=== PATIENT | male | born 1985 | race American Indian/Alaskan Native ===

== ENCOUNTER 2016-09-10 14:17 | Emergency (ER) | payer SELFPAY ==
[2016-09-10] MEDS ORDERED: ZOFRAN ODT PO ONE (16:50)
[2016-09-10] MEDS ORDERED: NACL 0.9% 1000 ML 1,000 ML IV ONE (16:52)
[2016-09-10] MEDS ORDERED: ZOFRAN IV ONE (16:53)
[2016-09-10 17:07] LABS: Basophils % (Auto) 0.7 % (0.0-1.8); Eosinophils % (Auto) 0.4 % (0.0-4.3); Hematocrit 46.7 % (35.5-45.6); Hemoglobin 15.3 gm/dl (11.8-15.2); Mean Corpuscular HGB Conc 33 % (32-34); Mean Corpuscular Hemoglobin 30 pg (28-32); Mean Corpuscular Volume 91 fl (84-94); Platelet Count 193 K/mm3 (140-440); Red Blood Count 5.14 M/mm3 (3.65-5.03); Red Cell Distribution Width 14.2 % (13.2-15.2)
--- NOTE | 2016-09-10 17:57 | Emergency Department Report ---
- General Chief Complaint: Upper Respiratory Infection Stated Complaint: N/V/D Time Seen by Provider: 09/10/16 16:48 Source: patient Mode of arrival: Ambulatory Limitations: No Limitations - History of Present Illness Initial Comments: Patient presents today with nausea, vomiting x 7 today, diarrhea x4 today and body aches. He states the diarrhea has been x 2 days. He has also had chills and sweating. MD Complaint: fever, cough -: Gradual Severity: severe Severity scale (0 -10): 9 Quality: aching Consistency: constant Improves With: nothing Worsens With: nothing Associated Symptoms: fever, chills, myalgias, cough, nausea, vomiting, diarrhea - Related Data Previous Rx's Medication Instructions Recorded Last Taken Type Ondansetron [Zofran Odt] 4 mg PO Q4H PRN #10 tab.rapdis 05/31/15 Unknown Rx Ondansetron [Zofran Odt] 4 mg PO BID #10 tab.rapdis 09/10/16 Unknown Rx Allergies Allergy/AdvReac Type Severity Reaction Status Date / Time No Known Allergies Allergy Unverified 04/19/14 10:08 ED Review of Systems ROS: Stated complaint: N/V/D Other details as noted in HPI Constitutional: denies: chills, fever Eyes: denies: eye pain, eye discharge, vision change ENT: denies: ear pain, throat pain Respiratory: denies: cough, shortness of breath, wheezing Cardiovascular: denies: chest pain, palpitations Gastrointestinal: nausea, diarrhea. denies: abdominal pain Genitourinary: denies: urgency, dysuria Musculoskeletal: as per HPI Skin: denies: rash, lesions Neurological: denies: headache, weakness, paresthesias ED Past Medical Hx - Surgical History Additional Surgical History: Surgery right ear, PE tubes - Social History Smoking Status: Current Every Day Smoker Substance Use Type: None - Medications Home Medications: Home Medications Medication Instructions Recorded Confirmed Last Taken Type Ondansetron [Zofran Odt] 4 mg PO Q4H PRN #10 tab.rapdis 05/31/15 Unknown Rx Ondansetron [Zofran Odt] 4 mg PO BID #10 tab.rapdis 09/10/16 Unknown Rx ED Physical Exam - General Limitations: No Limitations General appearance: alert, in no apparent distress, other (ill appearance, but non toxic) - Head Head exam: Present: atraumatic, normocephalic - Eye Eye exam: Present: normal appearance, PERRL - ENT ENT exam: Present: mucous membranes moist - Expanded ENT Exam Expanded TM/Canal exam: Effusion: Right TM, Left TM, Loss of Landmarks: Right TM, Left TM Mouth exam: Present: normal external inspection Teeth exam: Present: normal inspection Throat exam: Positive: normal inspection - Neck Neck exam: Present: normal inspection, full ROM. Absent: lymphadenopathy - Respiratory Respiratory exam: Present: normal lung sounds bilaterally. Absent: respiratory distress, wheezes, rales, rhonchi - Cardiovascular Cardiovascular Exam: Present: regular rate, normal rhythm. Absent: systolic murmur, diastolic murmur, rubs, gallop - GI/Abdominal GI/Abdominal exam: Present: soft, normal bowel sounds - Extremities Exam Extremities exam: Present: normal inspection, full ROM - Back Exam Back exam: Present: normal inspection, full ROM. Absent: tenderness - Neurological Exam Neurological exam: Present: alert, oriented X3, CN II-XII intact, normal gait - Psychiatric Psychiatric exam: Present: normal affect, normal mood - Skin Skin exam: Present: warm, dry, intact, normal color. Absent: rash ED Course Vital Signs 09/10/16 14:57 Temperature 99.1 F Pulse Rate 105 H Respiratory 18 Rate Blood Pressure 126/85 O2 Sat by Pulse 99 Oximetry ED Medical Decision Making - Lab Data Result diagrams: 09/10/16 16:53 09/10/16 16:53 - Medical Decision Making Patient presents today with flulike symptoms. He was given a liter of IV fluids , and Zofran 4 mg IV. After being given both he states he feels much better. He does not have a white count. His urine has some ketones and elevated specific gravity, H&H is slightly elevated. He likely has some dehydration due to the vomiting and diarrhea. He states he does not have time to wait for flu testing. Flu swabs cannot be located at this time. - Differential Diagnosis gastroenteritis, flu Critical Care Time: No Critical care attestation.: If time is entered above; I have spent that time in minutes in the direct care of this critically ill patient, excluding procedure time. ED Disposition Clinical Impression: Gastroenteritis Disposition: DISCHARGED TO HOME OR SELFCARE Is pt being admited?: No Does the pt Need Aspirin: No Condition: Stable Instructions: Acute Nausea and Vomiting (ED), Gastroenteritis (ED) Additional Instructions: Please return to ED if her symptoms do not resolve with medication. It is advised that she increase her fluid intake to avoid dehydration. It is also advised that he the BRAT diet which is banana, rice, applesauce, toast. Prescriptions: Ondansetron [Zofran Odt] 4 mg PO BID #10 tab.rapdis Referrals: PRIMARY CARE, [Primary Care Provider] - 3-5 Days Forms: Work/School Release Form(ED) Time of Disposition: 19:32
[2016-09-10 18:01] LABS: Alanine Aminotransferase 19 units/L (7-56); Albumin/Globulin Ratio 1.2 %; Alkaline Phosphatase 85 units/L (35-129); Anion Gap 17 mmol/L; BUN/Creatinine Ratio 7.77; Bilirubin,Total 0.2 mg/dL (0.1-1.2); Blood Urea Nitrogen 7 mg/dL (9-20); Calcium 9.4 mg/dL (8.4-10.2); Carbon Dioxide 24 mmol/L (22-30); Chloride 98.9 mmol/L (98-107); Glucose 92 mg/dL (75-100); Potassium 3.7 mmol/L (3.6-5.0); Sodium 136 mmol/L (137-145); Total Protein 7.4 g/dL (6.3-8.2)
[2016-09-10 19:19] LABS: Bilirubin,Urine NEG (Negative); Blood,Urine NEG (Negative); Ketones,Urine 20 mg/dL (Negative); Leukocyte Esterase,Urine NEG (Negative); Mucus,Urine 3+ /HPF; Nitrite,Urine NEG (Negative); Protein,Urine <15 mg/dL mg/dL (Negative); Urobilinogen,Urine < 2.0 mg/dL (<2.0)
[2016-09-10 19:58] VITALS: BP 127/76
== END 2016-09-10 19:59 | disposition home or self-care (01) ==
LOC: ED 14:17
DX: K52.9 Noninfective gastroenteritis and colitis, unspecified (principal); F17.200 Nicotine dependence, unspecified, uncomplicated
CPT/HCPCS: 36415; 80053; 81001; 85025; 96361; 96374; 99283; J2405; J7030

== ENCOUNTER 2017-02-22 07:51 | Emergency (ER) | payer SELFPAY ==
[2017-02-22 08:05] VITALS: BP 128/76
[2017-02-22] MEDS ORDERED: TORADOL IM ONE (09:36)
[2017-02-22] MEDS ORDERED: ULTRAM PO ONE (09:36)
--- NOTE | 2017-02-22 10:12 | Emergency Department Report ---
ED ENT HPI - General Chief complaint: Dental/Oral Stated complaint: TOOTHACHE Source: patient Mode of arrival: Ambulatory Limitations: No Limitations - History of Present Illness Initial comments: 31 year old male presents to ED with toothache x2 days. patient is stable, neurologically intact and in no acute distress. patient denies discharge, diff swallowing, mass. MD complaint: tooth pain -: Sudden 1 - toothace Severity: mild Quality: aching, sharp Consistency: constant Worsens with: eating Context- Dental: history of dental caries, poor dental care Associated Symptoms: gum swelling (mild), toothache. denies: fever, cough, pain with swallowing, sore throat, tinnitus, hearing loss, discharge from ear, rhinorrhea - Related Data Previous Rx's Medication Instructions Recorded Last Taken Type Ondansetron [Zofran Odt] 4 mg PO Q4H PRN #10 tab.rapdis 05/31/15 Unknown Rx Ondansetron [Zofran Odt] 4 mg PO BID #10 tab.rapdis 09/10/16 Unknown Rx Amoxicillin 500 mg PO BID #14 capsule 02/22/17 Unknown Rx Naproxen [Naprosyn] 500 mg PO BID #14 tablet 02/22/17 Unknown Rx Allergies Allergy/AdvReac Type Severity Reaction Status Date / Time No Known Allergies Allergy Unverified 04/19/14 10:08 ED Dental HPI - General Chief complaint: Dental/Oral Stated complaint: TOOTHACHE Source: patient Mode of arrival: Ambulatory Limitations: No Limitations - Related Data Previous Rx's Medication Instructions Recorded Last Taken Type Ondansetron [Zofran Odt] 4 mg PO Q4H PRN #10 tab.rapdis 05/31/15 Unknown Rx Ondansetron [Zofran Odt] 4 mg PO BID #10 tab.rapdis 09/10/16 Unknown Rx Amoxicillin 500 mg PO BID #14 capsule 02/22/17 Unknown Rx Naproxen [Naprosyn] 500 mg PO BID #14 tablet 02/22/17 Unknown Rx Allergies Allergy/AdvReac Type Severity Reaction Status Date / Time No Known Allergies Allergy Unverified 04/19/14 10:08 ED Review of Systems ROS: Stated complaint: TOOTHACHE Other details as noted in HPI Constitutional: denies: chills, fever Eyes: denies: eye pain, eye discharge, vision change ENT: dental pain (upper right). denies: ear pain, throat pain, hearing loss, epistaxis, congestion Respiratory: denies: cough, shortness of breath, wheezing Cardiovascular: denies: chest pain, palpitations Endocrine: no symptoms reported Gastrointestinal: denies: abdominal pain, nausea, diarrhea Genitourinary: denies: urgency, dysuria Musculoskeletal: denies: back pain, joint swelling, arthralgia Skin: denies: rash, lesions Neurological: denies: headache, weakness, paresthesias Psychiatric: denies: anxiety, depression Hematological/Lymphatic: denies: easy bleeding, easy bruising ED Past Medical Hx - Past Medical History Previous Medical History?: Yes Additional medical history: sinusitis - Surgical History Past Surgical History?: Yes Additional Surgical History: Surgery right ear, PE tubes - Social History Smoking Status: Current Every Day Smoker Substance Use Type: Non Opiate Pain - Medications Home Medications: Home Medications Medication Instructions Recorded Confirmed Last Taken Type Ondansetron [Zofran Odt] 4 mg PO Q4H PRN #10 tab.rapdis 05/31/15 Unknown Rx Ondansetron [Zofran Odt] 4 mg PO BID #10 tab.rapdis 09/10/16 Unknown Rx Amoxicillin 500 mg PO BID #14 capsule 02/22/17 Unknown Rx Naproxen [Naprosyn] 500 mg PO BID #14 tablet 02/22/17 Unknown Rx ED Physical Exam - General Limitations: No Limitations General appearance: alert, in no apparent distress - Head Head exam: Present: atraumatic, normocephalic - Eye Eye exam: Present: normal appearance, EOMI Pupils: Present: normal accommodation - ENT ENT exam: Present: normal exam, mucous membranes moist, TM's normal bilaterally , normal external ear exam - Neck Neck exam: Present: normal inspection. Absent: tenderness, lymphadenopathy - Respiratory Respiratory exam: Present: normal lung sounds bilaterally. Absent: respiratory distress, wheezes - Cardiovascular Cardiovascular Exam: Present: regular rate, normal rhythm. Absent: systolic murmur, diastolic murmur, rubs, gallop - GI/Abdominal GI/Abdominal exam: Present: soft, normal bowel sounds. Absent: distended, tenderness - Rectal Rectal exam: Present: deferred - Extremities Exam Extremities exam: Present: normal inspection, full ROM - Back Exam Back exam: Present: normal inspection, full ROM - Neurological Exam Neurological exam: Present: alert, oriented X3, normal gait - Psychiatric Psychiatric exam: Present: normal affect, normal mood - Skin Skin exam: Present: warm, dry, intact, normal color. Absent: rash ED Course Vital Signs 02/22/17 02/22/17 08:02 09:45 Temperature 98.8 F Pulse Rate 75 Respiratory 20 20 Rate Blood Pressure 128/76 O2 Sat by Pulse 100 Oximetry ED Medical Decision Making - Medical Decision Making 31 year old male presents to ED with toothache x2 days. patient has dental caries present in right upper mouth with mild gum swelling. patient will be placed on PO antibiotics and referred to [facility] dental clinic for further eval. patient is stable, neurologically intact and in no acute distress. Critical care attestation.: If time is entered above; I have spent that time in minutes in the direct care of this critically ill patient, excluding procedure time. ED Disposition Clinical Impression: Toothache, Dental caries, Gingivitis Disposition: DC- TO HOME OR SELFCARE Is pt being admited?: No Does the pt Need Aspirin: No Condition: Stable Instructions: Dental Caries (ED), Toothache (ED) Prescriptions: Amoxicillin 500 mg PO BID #14 capsule Naproxen [Naprosyn] 500 mg PO BID #14 tablet Referrals: [facility] [Outside] - 3-5 Days Forms: Work/School Release Form(ED)
== END 2017-02-22 10:01 | disposition home or self-care (01) ==
LOC: ED 07:51
DX: K02.9 Dental caries, unspecified (principal); K05.10 Chronic gingivitis, plaque induced; F17.200 Nicotine dependence, unspecified, uncomplicated
CPT/HCPCS: 96372; 99282; J1885

== ENCOUNTER 2017-08-06 10:56 | Emergency (ER) | payer SELFPAY ==
--- NOTE | 2017-08-06 17:54 | Emergency Department Report ---
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 PMHx: Right ear surgery as a child (tube placement), right hand Fx in the past. smokes about a 1/4 pack a day, He doesn't drink ETOH, No THC or illicit drugs. - ROS Review of Systems: As stated in HPI - Exam Vital Signs: Vital Signs 08/06/17 11:48 Temperature 98.7 F Pulse Rate 81 Respiratory 16 Rate Blood Pressure 137/68 O2 Sat by Pulse 98 Oximetry Physical Exam: mild distress NCAT CTA RRR tenderness to the right upper posterior molar, obvious cavity present, some redness to the overlying gum, no obvious visible abscess, some slight swelling to the gum line in the area. MSE screening note: Focused history and physical exam performed. Due to findings the following was ordered: Will go ahead and give a shot of Toradol, Rx for amoxicillin, and ibuprofen 800mg TID, advised OTC oragel and follow up with dentist. ED Disposition for MSE Condition: Stable Referrals: PRIMARY CARE, [Primary Care Provider] - 3-5 Days
[2017-08-06] MEDS ORDERED: TORADOL IM ONE (17:58)
[2017-08-06] MEDS ORDERED: TRIMOX PO ONE (17:59)
[2017-08-06] MEDS ORDERED: TORADOL ONE (18:15)
[2017-08-06 18:56] VITALS: BP 128/67
== END 2017-08-06 18:57 | disposition home or self-care (01) ==
LOC: ED 10:56
DX: K08.89 Other specified disorders of teeth and supporting structures (principal)
CPT/HCPCS: 96372; 99282; J1885

== ENCOUNTER 2018-09-21 00:59 | Emergency (ER) | payer SELFPAY ==
[2018-09-21 01:14] VITALS: BP 139/76
[2018-09-21] MEDS ORDERED: NACL 0.9% 1000 ML 1,000 ML IV ONE (03:28)
[2018-09-21] MEDS ORDERED: BENTYL PO ONE (03:29)
[2018-09-21] MEDS ORDERED: MOTRIN PO ONE (03:29)
[2018-09-21] MEDS ORDERED: ZOFRAN IV ONE (03:29)
[2018-09-21 03:51] LABS: Basophils % (Auto) 0.5 % (0.0-1.8); Eosinophils # (Auto) 0.1 K/mm3 (0.0-0.4); Eosinophils % (Auto) 1.6 % (0.0-4.3); Hematocrit 48.8 % (35.5-45.6); Hemoglobin 16.3 gm/dl (11.8-15.2); Lymphocytes # (Auto) 1.1 K/mm3 (1.2-5.4); Lymphocytes % (Auto) 12.5 % (13.4-35.0); Mean Corpuscular HGB Conc 33 % (32-34); Mean Corpuscular Hemoglobin 31 pg (28-32); Mean Corpuscular Volume 93 fl (84-94); Monocytes # (Auto) 0.7 K/mm3 (0.0-0.8); Monocytes % (Auto) 7.9 % (0.0-7.3); Platelet Count 184 K/mm3 (140-440); Red Blood Count 5.25 M/mm3 (3.65-5.03); Red Cell Distribution Width 15.1 % (13.2-15.2)
[2018-09-21 04:23] LABS: Alanine Aminotransferase 15 units/L (7-56); Albumin 4.4 g/dL (3.9-5); BUN/Creatinine Ratio 9; Blood Urea Nitrogen 9 mg/dL (9-20); Calcium 9.6 mg/dL (8.4-10.2); Hemolysis Index 11
--- NOTE | 2018-09-21 04:40 | Emergency Department Report ---
ED N/V/D HPI - General Chief complaint: Nausea/Vomiting/Diarrhea Stated complaint: DIARRHEA COLD SWEAT POLLEN NOT EATING FEVER Time Seen by Provider: 09/21/18 03:09 Source: patient Mode of arrival: Ambulatory Limitations: No Limitations - History of Present Illness Initial comments: Pt is a 33 yo male who presents to the ED with c/o N/V/D that began yesterday. He states he has diffuse abdominal cramping but no pain. He denies any new foods, different water source, recent abx, recent travel, or sick contacts. He is able to tolerate water intake. He states he also has seasonal allergies and is allergic to pollen. The patient has congestion, rhinorrhea, and watery eyes. He has not taken anything to relieve his sx. - Related Data Previous Rx's Medication Instructions Recorded Last Taken Type Cetirizine HCl [ZyrTEC] 10 mg PO DAILY #30 tab.rapdis 09/21/18 Unknown Rx Dicyclomine [Bentyl] 10 mg PO DAILY PRN #10 capsule 09/21/18 Unknown Rx Fluticasone [Flonase] 1 spray NS QDAY #1 bottle 09/21/18 Unknown Rx Ondansetron [Zofran Odt] 4 mg PO Q8HR PRN #10 tab.rapdis 09/21/18 Unknown Rx Allergies Allergy/AdvReac Type Severity Reaction Status Date / Time No Known Allergies Allergy Unverified 04/19/14 10:08 ED Review of Systems ROS: Stated complaint: DIARRHEA COLD SWEAT POLLEN NOT EATING FEVER Other details as noted in HPI Comment: All other systems reviewed and negative ED Past Medical Hx - Past Medical History Additional medical history: sinusitis - Surgical History Additional Surgical History: Surgery right ear, PE tubes - Social History Smoking Status: Current Every Day Smoker Substance Use Type: None - Medications Home Medications: Home Medications Medication Instructions Recorded Confirmed Last Taken Type Cetirizine HCl [ZyrTEC] 10 mg PO DAILY #30 tab.rapdis 09/21/18 Unknown Rx Dicyclomine [Bentyl] 10 mg PO DAILY PRN #10 capsule 09/21/18 Unknown Rx Fluticasone [Flonase] 1 spray NS QDAY #1 bottle 09/21/18 Unknown Rx Ondansetron [Zofran Odt] 4 mg PO Q8HR PRN #10 tab.rapdis 09/21/18 Unknown Rx ED Physical Exam - General Limitations: No Limitations General appearance: alert, in no apparent distress - Head Head exam: Present: atraumatic, normocephalic - Eye Eye exam: Present: normal appearance - ENT ENT exam: Present: normal orophraynx, other (pale and boggy nasal turbinates bilaterally ) - Respiratory Respiratory exam: Present: normal lung sounds bilaterally. Absent: respiratory distress, rales, rhonchi, stridor, chest wall tenderness, accessory muscle use, decreased breath sounds, prolonged expiratory - Cardiovascular Cardiovascular Exam: Present: regular rate, normal rhythm, normal heart sounds. Absent: systolic murmur, rubs, gallop - GI/Abdominal GI/Abdominal exam: Present: soft, normal bowel sounds. Absent: distended, tenderness, guarding, rebound, rigid, mass - Neurological Exam Neurological exam: Present: alert, oriented X3 - Psychiatric Psychiatric exam: Present: normal affect, normal mood - Skin Skin exam: Present: warm, dry, intact ED Course Vital Signs 09/21/18 09/21/18 09/21/18 01:11 01:23 04:55 Temperature 97.9 F 97.9 F Pulse Rate 87 96 H 78 Respiratory 16 18 15 Rate Blood Pressure 139/76 139/76 O2 Sat by Pulse 96 95 99 Oximetry ED Medical Decision Making - Lab Data Result diagrams: 09/21/18 03:32 09/21/18 03:32 - Medical Decision Making Pt is a 33 yo male who presents with N/V/D that began yesterday. he has abdominal cramping. abd exam is normal. Labs WNL. VSS. Pt given 1 L of fluids and IV zofran. Pt did not have any further episodes of emesis and was able to tolerate PO intake while in the ED. Will give pt zofran and advised to eat a bland diet. Discussed to continue to drink plenty of fluids. Also will give pt tx for seasonal allergies/allergic rhinits. Follow up with PCP in the next 2 days. Return to the ED for any new or worsening symptoms. - Differential Diagnosis Gastroenteritis, Viral syndrome, N/V/D, Seasonal allergies, allergic rhin Critical care attestation.: If time is entered above; I have spent that time in minutes in the direct care of this critically ill patient, excluding procedure time. ED Disposition Clinical Impression: Nausea vomiting and diarrhea, Seasonal allergies Disposition: DC-01 TO HOME OR SELFCARE Is pt being admited?: No Does the pt Need Aspirin: No Condition: Stable Instructions: Acute Nausea and Vomiting (ED), Allergies (ED) Additional Instructions: Follow up with a primary care doctor in the next 2-3 days. Take all medication as prescribed. Continue to drink plenty of fluids, eat a bland diet. Return to the emergency room for any new or worsening symptoms. Prescriptions: Dicyclomine [Bentyl] 10 mg PO DAILY PRN #10 capsule PRN Reason: Spasms Fluticasone [Flonase] 1 spray NS QDAY #1 bottle Ondansetron [Zofran Odt] 4 mg PO Q8HR PRN #10 tab.rapdis PRN Reason: Nausea And Vomiting Cetirizine HCl [ZyrTEC] 10 mg PO DAILY #30 tab.rapdis Referrals: DALIA TEE MD [Primary Care Provider] - 2-3 Days Forms: Work/School Release Form(ED) Time of Disposition: 04:37 Print Language: KAZAKH
== END 2018-09-21 04:54 | disposition home or self-care (01) ==
LOC: ED 00:59
DX: J30.2 Other seasonal allergic rhinitis (principal); R11.2 Nausea with vomiting, unspecified; R19.7 Diarrhea, unspecified; R10.84 Generalized abdominal pain; F17.200 Nicotine dependence, unspecified, uncomplicated
CPT/HCPCS: 36415; 80053; 85025; 96361; 96374; 99283; J2405; J7030

== ENCOUNTER 2019-07-03 08:26 | Emergency (ER) | payer OTHER ==
[2019-07-03 08:34] VITALS: BP 133/82
[2019-07-03] MEDS ORDERED: IBUPROFEN 600 MG TAB PO ONE ×2 (08:35→08:36)
[2019-07-03] MEDS ORDERED: ONDANSETRON 4 MG ODT TAB ONE (08:35)
[2019-07-03] MEDS ORDERED: ONDANSETRON 4 MG ODT TAB PO ONE (08:37)
--- NOTE | 2019-07-03 10:06 | Emergency Department Report ---
- General Chief Complaint: Nausea/Vomiting/Diarrhea Stated Complaint: FLU SYM Time Seen by Provider: 07/03/19 10:00 Source: patient Mode of arrival: Ambulatory Limitations: No Limitations - History of Present Illness Initial Comments: pt presents to the ED with c/o flu like symptoms that began two days ago. he has associated body aches, fever, chills, nausea, vomiting, rhinorrhea, dry cough. he denies any abd pain, SOB, CP. he denies any known sick contacts. no PMHx. no allergies to meds. non smoker. - Related Data Previous Rx's Medication Instructions Recorded Last Taken Type Cetirizine HCl [ZyrTEC] 10 mg PO DAILY #30 tab.rapdis 09/21/18 Unknown Rx Dicyclomine [Bentyl] 10 mg PO DAILY PRN #10 capsule 09/21/18 Unknown Rx Fluticasone [Flonase] 1 spray NS QDAY #1 bottle 09/21/18 Unknown Rx Ondansetron [Zofran Odt] 4 mg PO Q8HR PRN #10 tab.rapdis 09/21/18 Unknown Rx Ondansetron [Zofran Odt] 4 mg PO Q8HR PRN #12 tab.rapdis 07/03/19 Unknown Rx Oseltamivir [Tamiflu] 75 mg PO BID 5 Days #10 cap 07/03/19 Unknown Rx Allergies Allergy/AdvReac Type Severity Reaction Status Date / Time No Known Allergies Allergy Unverified 04/19/14 10:08 ED Review of Systems ROS: Stated complaint: FLU SYM Other details as noted in HPI Comment: All other systems reviewed and negative ED Past Medical Hx - Past Medical History Previous Medical History?: No Additional medical history: sinusitis - Surgical History Past Surgical History?: Yes Additional Surgical History: Surgery right ear, PE tubes - Social History Smoking Status: Never Smoker Substance Use Type: None - Medications Home Medications: Home Medications Medication Instructions Recorded Confirmed Last Taken Type Cetirizine HCl [ZyrTEC] 10 mg PO DAILY #30 tab.rapdis 09/21/18 Unknown Rx Dicyclomine [Bentyl] 10 mg PO DAILY PRN #10 capsule 09/21/18 Unknown Rx Fluticasone [Flonase] 1 spray NS QDAY #1 bottle 09/21/18 Unknown Rx Ondansetron [Zofran Odt] 4 mg PO Q8HR PRN #10 tab.rapdis 09/21/18 Unknown Rx Ondansetron [Zofran Odt] 4 mg PO Q8HR PRN #12 tab.rapdis 07/03/19 Unknown Rx Oseltamivir [Tamiflu] 75 mg PO BID 5 Days #10 cap 07/03/19 Unknown Rx ED Physical Exam - General Limitations: No Limitations General appearance: alert, in no apparent distress - Head Head exam: Present: atraumatic, normocephalic - Eye Eye exam: Present: normal appearance - ENT ENT exam: Present: normal orophraynx, mucous membranes moist, TM's normal bilaterally, normal external ear exam - Respiratory Respiratory exam: Present: normal lung sounds bilaterally. Absent: respiratory distress, wheezes, rales, rhonchi, stridor, chest wall tenderness, accessory muscle use, decreased breath sounds, prolonged expiratory - Cardiovascular Cardiovascular Exam: Present: regular rate, normal rhythm, normal heart sounds. Absent: systolic murmur, diastolic murmur, rubs, gallop - Neurological Exam Neurological exam: Present: alert, oriented X3 - Psychiatric Psychiatric exam: Present: normal affect, normal mood - Skin Skin exam: Present: warm, dry, intact ED Course Vital Signs 07/03/19 07/03/19 08:33 10:43 Temperature 99.5 F 99.4 F Pulse Rate 81 89 Respiratory 18 16 Rate Blood Pressure 133/82 [Right] O2 Sat by Pulse 98 98 Oximetry ED Medical Decision Making - Lab Data Vital Signs 07/03/19 07/03/19 08:33 10:43 Temperature 99.5 F 99.4 F Pulse Rate 81 89 Respiratory 18 16 Rate Blood Pressure 133/82 [Right] O2 Sat by Pulse 98 98 Oximetry - Medical Decision Making pt presents to the ED with c/o flu like symptoms that began two days ago. he has associated body aches, fever, chills, nausea, vomiting, rhinorrhea, dry cough. he denies any abd pain, SOB, CP. he denies any known sick contacts. no PMHx. no allergies to meds. non smoker. VSS. pt given ibuprofen and zofran and symptoms improved, he states he was able to eat a bag of chips. Patient has clinical signs and symptoms of influenza. Patient is within the 48-hour range for Tamiflu. Advised patient that it would approximately shortened symptoms by 1 day and he wanted to continue with Tamiflu treatment. Patient also given prescription for Zofran to use as needed for nausea. discussed the importance of oral rehydration and supportive care with pt. advised pt please take medication as prescribed. increase your fluid intake over the next several days. may take Tylenol then ibuprofen every 4 hours as needed for fever or body aches. may take over the counter cough/cold medication. follow up with a primary care doctor in the next 2-3 days. return to the emergency room for any new or worsening symptoms. - Differential Diagnosis URI, PNA, influenza, viral syndrome, otitis, pharyngitis Critical care attestation.: If time is entered above; I have spent that time in minutes in the direct care of this critically ill patient, excluding procedure time. ED Disposition Clinical Impression: Influenza Disposition: DC-01 TO HOME OR SELFCARE Is pt being admited?: No Does the pt Need Aspirin: No Condition: Stable Instructions: Influenza (ED) Additional Instructions: please take medication as prescribed. increase your fluid intake over the next several days. may take Tylenol then ibuprofen every 4 hours as needed for fever or body aches. may take over the counter cough/cold medication. follow up with a primary care doctor in the next 2-3 days. return to the emergency room for any new or worsening symptoms. Prescriptions: Oseltamivir [Tamiflu] 75 mg PO BID 5 Days #10 cap Ondansetron [Zofran Odt] 4 mg PO Q8HR PRN #12 tab.rapdis PRN Reason: Nausea Referrals: DALIA TEE MD [Staff Physician] - 2-3 Days [facility] [Outside] - 2-3 Days [facility] [Outside] - 2-3 Days Forms: Work/School Release Form(ED) Time of Disposition: 10:07 Print Language: MONEGASQUE
== END 2019-07-03 10:47 | disposition home or self-care (01) ==
LOC: ED 08:26
DX: J11.1 Influenza due to unidentified influenza virus with other respiratory manifestations (principal)
CPT/HCPCS: 99282; Q0162

== ENCOUNTER 2019-08-19 10:15 | Emergency (ER) | payer OTHER ==
[2019-08-19 10:20] VITALS: BP 124/82
[2019-08-19] MEDS ORDERED: ONDANSETRON 4 MG ODT TAB PO ONE (11:14)
[2019-08-19] MEDS ORDERED: FAMOTIDINE 20 MG TAB PO ONE (11:14)
--- NOTE | 2019-08-19 12:00 | Emergency Department Report ---
Vomiting/Diarrhea - HPI Chief Complaint: Nausea/Vomiting/Diarrhea Stated Complaint: FOOD POISONING Time Seen by Provider: 08/19/19 11:05 Duration: 1 Day Severity: mild Nausea/Vomiting Severity: Mild Diarrhea Severity: Mild Pain Severity: None Symptoms: Yes Watery Diarrhea, Yes Able to Tolerate Fluids, Yes Recent Unusual Foods (Sushi last night), No Bloody diarrhea, No Fever, No Recent Untreated Water, No Recent use of Antibiotics, No Family w/ Similar Symptoms, No Contacts w/ Similar Symptoms, No Rash, No Hematuria, No Recent URI Symptoms Other History: This is a 34-year-old male with no prior medical history presents the ED complaining of vomiting and diarrhea that began this morning. Patient states last night he went out to eat sushi and had a lot of sushi. Patient states around 3 AM he woke up with a bubbly stomach and had one episode of diarrhea. Patient describes non-bloody loose stools with several episodes of vomiting. He denies abdominal pain, fever, chills ED Review of Systems ROS: Stated complaint: FOOD POISONING Other details as noted in HPI Comment: All other systems reviewed and negative ED Past Medical Hx - Past Medical History Previous Medical History?: No Additional medical history: sinusitis - Surgical History Past Surgical History?: Yes Additional Surgical History: Surgery right ear, PE tubes - Social History Smoking Status: Current Some Day Smoker Substance Use Type: None - Medications Home Medications: Home Medications Medication Instructions Recorded Confirmed Last Taken Type Cetirizine HCl [ZyrTEC] 10 mg PO DAILY #30 tab.rapdis 09/21/18 Unknown Rx Dicyclomine [Bentyl] 10 mg PO DAILY PRN #10 capsule 09/21/18 Unknown Rx Fluticasone [Flonase] 1 spray NS QDAY #1 bottle 09/21/18 Unknown Rx Ondansetron [Zofran Odt] 4 mg PO Q8HR PRN #10 tab.rapdis 09/21/18 Unknown Rx Oseltamivir [Tamiflu] 75 mg PO BID 5 Days #10 cap 07/03/19 Unknown Rx Ondansetron [Zofran ODT TAB] 4 mg PO Q8HR PRN #12 tab.rapdis 08/19/19 Unknown Rx Vomiting Diarrhea Exam - Exam General: Vital signs noted. No distress. Alert and acting appropriately. HEENT: Yes Moist Mucous Membranes, No Pharyngeal Erythema, No Pharyngeal Exudates, No Rhinorrhea, No Conjuctival Injection, No Frontal Tenderness, No Maxillary Tenderness Neck: No Adenopathy, No Rigidity Lungs: Yes Clear Lung Sounds, Yes Good Air Exchange, No Wheezes, No Stridor, No Cough, No Nasal Flaring, No Retractions, No Use of Accessory Muscles Heart exam: Regular: Yes, Murmur: No, Tachycardia: No Abdomen: Tenderness: No, Peritoneal Signs: No, Distention: No, Hyperactive Bowel sounds: No Skin exam: Rash: No, Edema: No, Normal turgor: Yes Neurologic: Alert and oriented, no deficits. Musculoskeletal: Unremarkable. ED Course Vital Signs 08/19/19 08/19/19 08/19/19 10:18 10:55 10:56 Temperature 97.8 F Pulse Rate 114 H 92 H Respiratory 18 18 18 Rate Blood Pressure 124/82 O2 Sat by Pulse 97 100 100 Oximetry ED Medical Decision Making - Medical Decision Making 34-year-old male presents with mild gastroenteritis/food poisoning Discussed with patient hydrate increase Discussed Zofran use for nausea. Discussed to follow-up with primary care physician. Discussed if worsening symptoms return to the ED. Vital signs are normal patient is in no acute distress Critical care attestation.: If time is entered above; I have spent that time in minutes in the direct care of this critically ill patient, excluding procedure time. ED Disposition Clinical Impression: Acute vomiting, Food poisoning, Acute gastroenteritis Disposition: DC-01 TO HOME OR SELFCARE Is pt being admited?: No Does the pt Need Aspirin: No Condition: Stable Instructions: Food Poisoning (ED) Additional Instructions: Make sure to follow up with the primary care physician as discussed. Take all your medications as you've been prescribed. If you have any worsening symptoms or develop new symptoms please return to ED immediately. Prescriptions: Ondansetron [Zofran ODT TAB] 4 mg PO Q8HR PRN #12 tab.rapdis PRN Reason: Nausea Referrals: PRIMARY CARE,MD [Primary Care Provider] - 3-5 Days Forms: Work/School Release Form(ED) Time of Disposition: 12:00
== END 2019-08-19 12:12 | disposition home or self-care (01) ==
LOC: ED 10:15
DX: K52.89 Other specified noninfective gastroenteritis and colitis (principal); R11.10 Vomiting, unspecified; A05.9 Bacterial foodborne intoxication, unspecified; F17.200 Nicotine dependence, unspecified, uncomplicated; Z98.890 Other specified postprocedural states; Z79.899 Other long term (current) drug therapy
CPT/HCPCS: Q0162

== ENCOUNTER 2019-10-13 20:59 | Emergency (ER) | payer OTHER ==
[2019-10-13 21:05] VITALS: BP 136/80
--- NOTE | 2019-10-13 22:01 | Emergency Department Report ---
Chief Complaint: Headache Stated Complaint: ALLERGIES Time Seen by Provider: 10/13/19 21:44 - HPI History of Present Illness: 34-year-old -[place] male presents to the emergency room complaining of allergies. Patient states that his headache runny nose scratchy throat and watery eyes started yesterday. Patient states he took Benadryl which she reports did not help much. Patient denies any fever chills no nausea no vomiting no diarrhea no shortness of breath or chest pain. - Exam Vital Signs: Vital Signs 10/13/19 21:01 Temperature 98.6 F Pulse Rate 78 Respiratory 18 Rate Blood Pressure 136/80 O2 Sat by Pulse 99 Oximetry MSE screening note: Focused history and physical exam performed. Due to findings the following was ordered: 34-year-old -[place] male presents to the emergency room complaining of allergies. Patient states that his headache runny nose scratchy throat and watery eyes started yesterday. Patient states he took Benadryl which she re ports did not help much. Patient denies any fever chills no nausea no vomiting no diarrhea no shortness of breath or chest pain. Recommend to take [id number] Zyrtec's, Flonase Tylenol or ibuprofen. Follow-up with her primary care provider. ED Disposition for MSE Clinical Impression: Allergic rhinitis Disposition: MED SCREENING EXAM-LEFT Is pt being admited?: No Does the pt Need Aspirin: No Condition: Stable Additional Instructions: Recommend to take [id number] Zyrtec's, Flonase Tylenol or ibuprofen. Follow-up with her primary care provider. Referrals: BONY ROSA MD [Primary Care Provider] - 3-5 Days Forms: Work/School Release Form(ED)
== END 2019-10-13 21:55 | disposition left against medical advice (07) ==
LOC: ED 20:59
DX: J30.9 Allergic rhinitis, unspecified (principal)
CPT/HCPCS: 99282